=== PATIENT | female | born 1970 | race Caucasian/White ===

== ENCOUNTER → 2017-07-14 | Outpatient (CLI) | payer BC ==
--- NOTE | 2017-07-14 14:57 | RAD ---
AP and lateral left foot radiographs 07/14/2017 Clinical history: Left distal foot pain for one day. Stubbed toe on couch. AP and lateral digital radiographs of the left foot were obtained. No fracture or dislocation of the left foot is seen. Mild degenerative changes are seen scattered throughout the interphalangeal joints and first MTP joint of the left foot. Impression: No fracture or dislocation of the left foot is seen.
== END | disposition home or self-care (01) ==
LOC: DXRADRC 14:19
PROVIDERS: ATTEND Nurse Practitioner Family
DX: M19.072 Primary osteoarthritis, left ankle and foot (principal)
CPT/HCPCS: 73620